=== PATIENT | female | born 1985 | race Caucasian/White ===

== ENCOUNTER 2017-12-05 23:52 | Emergency (ER) | payer MEDICAID ==
[~2017-12-05] VITALS: Ht 177.8 cm; Wt 61.4 kg
[~2017-12-05 23:52] MED LIST: AZIT250T PO; CIPR-260 PO; CYCL-1 PO; HYDR-569 PO; METH4TAB81 PO; ONDA4TAB12 PO; ONDA4TAB6 PO; OXYC-145 PO; PHEN-873 PO
[2017-12-06 00:56] LABS: CLARITY,URINE CLOUDY (Clear); COLOR,URINE YELLOW (Yellow); GLUCOSE, URINE NEGATIVE (Neg); KETONES,URINE NEGATIVE (Neg); LEUKOCYTE ESTERASE ,URINE TRACE (Neg); NITRITES, URINE POSITIVE (Neg); OCCULT BLOOD,URINE MODERATE (Neg); PROTEIN,URINE TRACE mg/dl (Neg)
[2017-12-06 00:58] LABS: UA COLLECTION TYPE STRAIGHT CATH
[2017-12-06] MEDS ORDERED: ciprofloxacin 250mg tablet PO ONE (01:00)
[2017-12-06] MEDS ORDERED: CIPR-230 PO (01:01)
[2017-12-06 01:21] LABS: BACTERIA,URINE 4+ /HPF (Neg); SQUAMOUS EPITHELIAL CELL,UR FEW /LPF (FEW); WBC,URINE 50-100 /HPF (0-4)
[2017-12-06 01:25] VITALS: BP 114/54
== END 2017-12-06 01:28 ==
LOC: ER 23:53
DX: N39.0 Urinary tract infection, site not specified (principal); G89.29 Other chronic pain; Z87.442 Personal history of urinary calculi; Z88.2 Allergy status to sulfonamides; Z79.899 Other long term (current) drug therapy
CPT/HCPCS: 81001; 87077; 87088; 87186; 99285

== ENCOUNTER 2018-02-15 17:43 | Emergency (ER) | payer MEDICAID ==
[~2018-02-15] VITALS: Ht 175.3 cm; Wt 65.1 kg
[2018-02-15 19:01] LABS: BASOPHILS # (AUTO) 0.1 X10'3 (0-0.2); BASOPHILS % (AUTO) 0.8 % (0-1); EOSINOPHILS # (AUTO) 0.1 X10'3 (0-0.9); HEMATOCRIT 37.1 % (35.0-45.0); HEMOGLOBIN 12.7 g/dl (12.0-16.0); LYMPHOCYTES # (AUTO) 1.9 X10'3 (1.1-4.8); LYMPHOCYTES % (AUTO) 21.4 % (21-51); MEAN CORPUSCULAR HEMOGLOBIN 30.2 PG (27.0-31.0); MEAN CORPUSCULAR HGB CONC 34.1 % (33.0-36.5); MEAN CORPUSCULAR VOLUME 88.6 FL (78-98); MEAN PLATELET VOLUME 9.7 FL (7.4-10.4); MONOCYTES # (AUTO) 0.6 X10'3 (0-0.9); MONOCYTES % (AUTO) 6.9 % (2-12); NEUTROPHILS # (AUTO) 6.2 X10'3 (1.8-7.7); NEUTROPHILS % (AUTO) 69.9 % (42-75); PLATELET COUNT 223 X10'3 (140-440); RED BLOOD COUNT 4.19 X10'6 (4.20-5.60); RED CELL DISTRIBUTION WIDTH 13.8 % (11.5-14.5); WHITE BLOOD COUNT 8.9 X10'3 (4.5-11.0)
[2018-02-15 19:05] LABS: URINE HCG NEGATIVE (NEG)
[2018-02-15 19:06] LABS: CLARITY,URINE SLIGHTLY CLOUDY (Clear); COLOR,URINE YELLOW (Yellow); GLUCOSE, URINE NEGATIVE (Neg); KETONES,URINE TRACE mg/dl (Neg); LEUKOCYTE ESTERASE ,URINE TRACE (Neg); NITRITES, URINE POSITIVE (Neg); OCCULT BLOOD,URINE SMALL (Neg); PROTEIN,URINE 30 mg/dl (Neg)
[2018-02-15 19:08] LABS: PROTHROMBIN TIME 10.8 SECONDS (9.0-12.0)
[2018-02-15 19:10] LABS: UA COLLECTION TYPE CLN CATCH MIDSTREAM
[2018-02-15 19:17] LABS: BACTERIA,URINE 4+ /HPF (Neg); MUCUS STRANDS NONE SEEN /LPF (Neg); RBC,URINE 0-2 /HPF (0-2); SQUAMOUS EPITHELIAL CELL,UR MODERATE /LPF (FEW); WBC,URINE 20-30 /HPF (0-4)
[2018-02-15 19:20] LABS: ALANINE AMINOTRANSFERASE 18 U/L (12-78); ALBUMIN 3.7 G/DL (3.4-5.0); ALBUMIN/GLOBULIN RATIO 0.9 (1.1-1.5); ALKALINE PHOSPHATASE 74 IU/L (46-116); ANION GAP 6 (8-16); ASPARTATE AMINO TRANSFERASE 15 U/L (10-37); BILIRUBIN,TOTAL 0.3 MG/DL (0.1-1.0); BLOOD UREA NITROGEN 10 MG/DL (7-18); BUN/CREATININE RATIO 14.9 (6.6-38.0); CHLORIDE 101 MMOL/L (99-107); CREATININE 0.67 MG/DL (0.40-0.90); GLUCOSE 106 MG/DL (70-104); POTASSIUM 3.5 MMOL/L (3.5-5.1); SODIUM 133 MMOL/L (135-145); TOTAL CARBON DIOXIDE 26.1 MMOL/L (24-32); TOTAL PROTEIN 7.7 G/DL (6.4-8.2); eGFR > 90 ML/MIN
[2018-02-15 19:37] LABS: CALCIUM 9.2 MG/DL (8.5-10.1)
[2018-02-15] MEDS ORDERED: levoFLOXACIN-Levaquin 750MG/D5 150 ML IV STA (21:49)
[2018-02-15] MEDS ORDERED: normal saline 1000ML IV soln IVB ONE (21:50)
[2018-02-15] MEDS ORDERED: ketorolac trometh. 30mg/ml inj. IV ONE (21:50)
[2018-02-15] MEDS ORDERED: ondansetron/PF 4mg/2ml inj IV ONE (21:50)
[2018-02-15] MEDS ORDERED: levoFLOXACIN 750MG TABLET PO ONE (23:30)
[2018-02-15] MEDS ORDERED: ondansetron 4mg rapidly disintigrating tab PO ONE (23:30)
[2018-02-15] MEDS ORDERED: ketorolac tromethamine 15mg/ml inj. IM ONE (23:30)
[2018-02-15] MEDS ORDERED: LEVO500T2 PO (23:34)
[2018-02-15] MEDS ORDERED: ONDA4TAB9 SL (23:34)
[2018-02-15] MEDS ORDERED: FLO0.4C PO (23:34)
[2018-02-15] MEDS ORDERED: HYDR-565 PO (23:34)
[2018-02-15] MEDS ORDERED: KETO10TA2 PO (23:34)
[2018-02-16] MEDS ORDERED: HYDROcodone/acetaminophen 10/325mg tab PO ONE (01:30)
[2018-02-16 02:41] VITALS: BP 126/68
== END 2018-02-16 02:43 | disposition home or self-care (01) ==
LOC: ER 17:44
DX: N39.0 Urinary tract infection, site not specified (principal); N13.30 Unspecified hydronephrosis; Z98.890 Other specified postprocedural states; Z88.2 Allergy status to sulfonamides; Z79.2 Long term (current) use of antibiotics; Z79.899 Other long term (current) drug therapy
CPT/HCPCS: 36415; 74176; 80053; 81001; 81025; 85025; 85610; 87077; 87088; 87186; 96372; 99285; J1885; J1956; J2405; J7030

== ENCOUNTER 2018-11-09 06:46 | Emergency (ER) | payer MEDICAID, OTHER ==
[~2018-11-09] VITALS: Ht 175.3 cm; Wt 65.0 kg
[~2018-11-09 06:46] MED LIST changes: +HYDR-4383 PO; -HYDR-569 PO; +KETO10TA2 PO; +PHEN-786 PO; -PHEN-873 PO
[2018-11-09] MEDS ORDERED: acetaminophen 325mg tablet PO ONE (07:25)
[2018-11-09] MEDS ORDERED: ibuprofen tablet 400 MG TABLET PO ONE (07:25)
[2018-11-09] MEDS ORDERED: ondansetron 4mg rapidly disintigrating tab PO ONE (07:40)
--- NOTE | 2018-11-09 07:50 | NUR ---
Notified Dr. Pacheco regarding patients stated that she was nauseated. Dr. Pacheco gave me verbal order for zofran 4 mg ODT now. Will place order and administer medication at prescribed.
[2018-11-09 08:30] LABS: CLARITY,URINE CLOUDY (Clear); COLOR,URINE YELLOW (Yellow); GLUCOSE, URINE NEGATIVE (Neg); KETONES,URINE NEGATIVE (Neg); LEUKOCYTE ESTERASE ,URINE TRACE (Neg); NITRITES, URINE POSITIVE (Neg); OCCULT BLOOD,URINE SMALL (Neg); PH,URINE 5.5 (4.8-8.0); PROTEIN,URINE 30 mg/dl (Neg); UROBILINOGEN,URINE 0.2 E.U/dL (0.2-1.0)
[2018-11-09 08:33] LABS: UA COLLECTION TYPE CLN CATCH MIDSTREAM
[2018-11-09] MEDS ORDERED: AMOX-580 PO (08:37)
[2018-11-09] MEDS ORDERED: DOXY100C43 PO (08:38)
[2018-11-09 08:46] LABS: BACTERIA,URINE 4+ /HPF (Neg); SQUAMOUS EPITHELIAL CELL,UR MANY /LPF (FEW); WBC,URINE 20-30 /HPF (0-4)
[2018-11-09 08:47] LABS: TRANSITIONAL EPI CELLS,URINE FEW /HPF
[2018-11-09 08:51] LABS: RBC,URINE 0-2 /HPF (0-2)
[2018-11-09 09:26] VITALS: BP 109/70
== END 2018-11-09 09:28 | disposition home or self-care (01) ==
LOC: ER 06:47
DX: N39.0 Urinary tract infection, site not specified (principal); L03.116 Cellulitis of left lower limb; L03.115 Cellulitis of right lower limb; R22.0 Localized swelling, mass and lump, head; G89.29 Other chronic pain; F17.210 Nicotine dependence, cigarettes, uncomplicated; Z86.14 Personal history of Methicillin resistant Staphylococcus aureus infection; Z98.890 Other specified postprocedural states; Z88.2 Allergy status to sulfonamides; Z79.2 Long term (current) use of antibiotics; Z79.899 Other long term (current) drug therapy
CPT/HCPCS: 81001; 99284

== ENCOUNTER 2019-02-07 15:56 | Emergency (ER) | payer MEDICAID, OTHER ==
[~2019-02-07] VITALS: Ht 175.3 cm; Wt 60.0 kg
[2019-02-07 16:03] VITALS: BP 107/74
[2019-02-07 16:47] LABS: CLARITY,URINE CLOUDY (Clear); COLOR,URINE YELLOW (Yellow); GLUCOSE, URINE NEGATIVE (Neg); KETONES,URINE NEGATIVE (Neg); LEUKOCYTE ESTERASE ,URINE MODERATE (Neg); NITRITES, URINE NEGATIVE (Neg); OCCULT BLOOD,URINE SMALL (Neg); PH,URINE 5.5 (4.8-8.0); PROTEIN,URINE 100 mg/dl (Neg)
[2019-02-07 16:48] LABS: URINE HCG NEGATIVE (NEG)
[2019-02-07 16:49] LABS: UA COLLECTION TYPE CLN CATCH MIDSTREAM
[2019-02-07] MEDS ORDERED: predniSONE 20 mg tablet PO ONE (16:50)
[2019-02-07] MEDS ORDERED: diphenhydrAMINE 25mg capsule PO ONE (16:50)
[2019-02-07 16:58] LABS: BACTERIA,URINE 3+ /HPF (Neg); MUCUS STRANDS MODERATE /LPF (Neg); RBC,URINE 0-2 /HPF (0-2); SQUAMOUS EPITHELIAL CELL,UR MODERATE /LPF (FEW); WBC,URINE 50-100 /HPF (0-4)
[2019-02-07 16:59] LABS: RENAL CELLS, URINE FEW /HPF; TRANSITIONAL EPI CELLS,URINE FEW /HPF
[2019-02-07] MEDS ORDERED: CEPH-571 PO (17:04)
== END 2019-02-07 17:45 | disposition home or self-care (01) ==
LOC: ER 15:57
DX: N39.0 Urinary tract infection, site not specified (principal); L50.8 Other urticaria; G89.29 Other chronic pain; Z87.442 Personal history of urinary calculi; Z86.14 Personal history of Methicillin resistant Staphylococcus aureus infection; Z98.890 Other specified postprocedural states; Z88.2 Allergy status to sulfonamides; Z79.899 Other long term (current) drug therapy
CPT/HCPCS: 81001; 81025; 87077; 87088; 87186; 99283; J7512; Q0163

== ENCOUNTER 2019-03-15 01:44 | Emergency (ER) | payer MEDICAID, OTHER ==
[~2019-03-15] VITALS: Ht 175.3 cm; Wt 65.9 kg
[~2019-03-15 01:44] MED LIST changes: +CEPH-571 PO
[2019-03-15 02:39] LABS: CLARITY,URINE TURBID (Clear); COLOR,URINE YELLOW (Yellow); GLUCOSE, URINE NEGATIVE (Neg); KETONES,URINE NEGATIVE (Neg); LEUKOCYTE ESTERASE ,URINE TRACE (Neg); NITRITES, URINE POSITIVE (Neg); OCCULT BLOOD,URINE TRACE-INTACT (Neg); PH,URINE 5.5 (4.8-8.0); PROTEIN,URINE 30 mg/dl (Neg)
[2019-03-15 02:42] LABS: UA COLLECTION TYPE CLN CATCH MIDSTREAM; URINE HCG NEGATIVE (NEG)
[2019-03-15 02:45] LABS: BACTERIA,URINE 4+ /HPF (Neg); RBC,URINE NONE SEEN /HPF (0-2); SQUAMOUS EPITHELIAL CELL,UR FEW /LPF (FEW)
--- NOTE | 2019-03-15 02:58 | NUR ---
multiple attempts made to place iv with no success. laboratory worker able to collect blood draw. Pt reports that her last visit many attempts made to place piv in her arms and in her neck with no success.
[2019-03-15 03:03] LABS: BASOPHILS % (AUTO) 0.5 % (0-1); EOSINOPHILS # (AUTO) 0.1 X10'3 (0-0.9); EOSINOPHILS % (AUTO) 1.4 % (0-6); HEMATOCRIT 35.4 % (35.0-45.0); LYMPHOCYTES # (AUTO) 1.7 X10'3 (1.1-4.8); LYMPHOCYTES % (AUTO) 28.6 % (21-51); MEAN CORPUSCULAR HEMOGLOBIN 30.2 PG (27.0-31.0); MEAN CORPUSCULAR HGB CONC 33.9 g/dL (33.0-36.5); MEAN CORPUSCULAR VOLUME 89.2 FL (78-98); MEAN PLATELET VOLUME 9.8 FL (7.4-10.4); MONOCYTES # (AUTO) 0.4 X10'3 (0-0.9); NEUTROPHILS # (AUTO) 3.7 X10'3 (1.8-7.7); NEUTROPHILS % (AUTO) 63.5 % (42-75); PLATELET COUNT 168 X10'3 (140-440); RED BLOOD COUNT 3.96 X10'6 (4.20-5.60); RED CELL DISTRIBUTION WIDTH 14.7 % (11.5-14.5); WHITE BLOOD COUNT 5.8 X10'3 (4.5-11.0)
[2019-03-15 03:14] LABS: ALANINE AMINOTRANSFERASE 19 U/L (12-78); ALBUMIN 3.5 G/DL (3.4-5.0); ALBUMIN/GLOBULIN RATIO 1.1 (1.1-1.5); ALKALINE PHOSPHATASE 63 IU/L (46-116); ANION GAP 7 (8-16); ASPARTATE AMINO TRANSFERASE 17 U/L (10-37); BILIRUBIN,TOTAL 0.4 MG/DL (0.1-1.0); BLOOD UREA NITROGEN 10 MG/DL (7-18); BUN/CREATININE RATIO 13.3 (6.6-38.0); CALCIUM 8.4 MG/DL (8.5-10.1); CHLORIDE 105 MMOL/L (99-107); CREATININE 0.75 MG/DL (0.40-0.90); GLUCOSE 123 MG/DL (70-104); POTASSIUM 3.8 MMOL/L (3.5-5.1); SODIUM 139 MMOL/L (135-145); TOTAL CARBON DIOXIDE 27.3 MMOL/L (24-32); TOTAL PROTEIN 6.7 G/DL (6.4-8.2); eGFR 90 ML/MIN
[2019-03-15 03:16] VITALS: BP 114/70
[2019-03-15] MEDS ORDERED: NITR100C6 PO (03:20)
== END 2019-03-15 03:46 | disposition home or self-care (01) ==
LOC: ER 01:45
DX: N39.0 Urinary tract infection, site not specified (principal); G89.29 Other chronic pain; Z86.14 Personal history of Methicillin resistant Staphylococcus aureus infection; Z87.442 Personal history of urinary calculi; Z98.890 Other specified postprocedural states; Z88.2 Allergy status to sulfonamides; Z79.2 Long term (current) use of antibiotics; Z79.899 Other long term (current) drug therapy
CPT/HCPCS: 36415; 80053; 81001; 81025; 85025; 85610; 87077; 87088; 87186; 99283